=== PATIENT | male | born 1970 | race Caucasian/White ===

== ENCOUNTER 2022-10-07 06:09 | Day surgery (SDC) | payer BC ==
[~2022-10-07 06:09] MED LIST: Dexmedetomidine 200 MCG/2 ML SDV ONE; EPINEPHrine 1 MG/ML SDV ONE; Lactated Ringers 1,000 ML IV SCH; Lidocaine 1% 5 ML VIAL ONE; Lidocaine 1%/Sod Bicarbonate in NS 8.4% 1 ML Syringe IDERM PRN; Midazolam 1 MG/ML 2 ML SDV ONE; Ondansetron 4 MG/2 ML SDV ONE; Propofol 200 MG/20 ML SDV ONE; Rocuronium 50 MG/5 ML Vial ONE; Ropivacaine 0.5% 5 MG/ML 30 ML SDV ONE; Sodium Chloride 0.9% 10 ML Syringe FLUSH PRN; Sodium Chloride 0.9% 10 ML Syringe FLUSH SCH; fentaNYL 100 MCG/2 ML SDV ONE
[2022-10-07] MEDS ORDERED: ceFAZolin 2 GM Vial ONE (06:17)
[2022-10-07] MEDS ORDERED: EPINEPHrine 1 MG/ML 30 ML MDV ONE (07:30)
[2022-10-07] MEDS ORDERED: Dexamethasone 4 MG/ML 5 ML MDV ONE (07:30)
[2022-10-07] MEDS ORDERED: ePHEDrine 50 MG/ML SDV ONE (07:34)
[2022-10-07] MEDS ORDERED: Ondansetron 4 MG/2 ML SDV IVPUSH PRN (07:35)
[2022-10-07] MEDS ORDERED: HYDROmorphone 0.5 MG/0.5 ML Syringe IVPUSH PRN (07:35)
[2022-10-07] MEDS ORDERED: fentaNYL 100 MCG/2 ML SDV IVPUSH PRN (07:35)
[2022-10-07] MEDS ORDERED: Neostigmine Methylsulfate 10 MG/10 ML MDV ONE (07:53)
[2022-10-07] MEDS ORDERED: Lactated Ringers 1,000 ML ONE (08:25)
[2022-10-07] MEDS ORDERED: Ketorolac 30 MG/ML SDV ONE (08:30)
== END 2022-10-07 10:40 | disposition home or self-care (01) ==
LOC: JD.SDS 06:09
PROVIDERS: ATTEND Orthopaedic Surgery
DX: M75.112 Incomplete rotator cuff tear or rupture of left shoulder, not specified as traumatic (principal); M75.42 Impingement syndrome of left shoulder; E78.00 Pure hypercholesterolemia, unspecified; F17.220 Nicotine dependence, chewing tobacco, uncomplicated; J30.9 Allergic rhinitis, unspecified; Z98.890 Other specified postprocedural states; Z79.899 Other long term (current) drug therapy
CPT/HCPCS: 29823; 29826; 29827; 29828; 36415; 64415; 85610; 85730; C1713; J0171; J0690; J1100; J1885; J2250; J2405; J2704; J2710; J2795; J3010; J7120; 01630; J3490